=== PATIENT | female | born 1990 | race Caucasian/White ===

== ENCOUNTER 2025-01-21 02:20 | Emergency (ER) | payer MEDICAID, SELFPAY ==
[2025-01-21 02:21] VITALS: BMI 25.0
[2025-01-21 02:28] VITALS: BP 141/78; PULSE 103; RESP 19; TEMP 36.7; O2SAT 98
--- NOTE | 2025-01-21 03:30 | PC.NURSE ---
Patient currently in restroom and aware of need for urine sample.
[2025-01-21] MEDS: NAPROXEN 250 MG TABLET 500 MG PO (03:46)
[2025-01-21] MEDS: AZITHROMYCIN 250 MG TABLET 1000 MG PO (03:46)
[2025-01-21] MEDS: cefTRIAXone 1,000 MG, LIDOCAINE 1% 20 ML 2.1 ML IM (03:47)
[2025-01-21 04:04] LABS: HIV (1&2) Antibody Rapid Non-Reactive
--- NOTE | 2025-01-21 04:13 | EDNOTE_ITS ---
ED Female Urogenital RME/HPI General Chief complaint: General Adult/Misc Complain Stated complaint: STD CHECK / FEELS LIKE A DIAPER RASH Time Seen by Provider: 01/21/25 02:50 Arrival date/time: 01/21/25 02:20 34F with history of homelessness and drug use presents to ED with vaginal rash and irritation/pain after some sexual encounter several months ago. Patient denies vaginal discharge and dysuria. Limitations: no limitations Related Data Previous Rx's ?Medication ?Instructions ?Recorded hydrocodone 5 mg-acetaminophen 325 1 tab PO Q6H PRN pa in #10 tabs 05/14/22 mg tablet naproxen 500 mg tablet (Naprosyn) 500 mg PO BID pain # 10 tabs 06/13/24 ondansetron 4 mg disintegrating 4 mg PO Q6H PRN nausea and 06/13/24 tablet vomiting #20 tabs lidocaine 5 % topical ointment 1 applic topical BID LA N pain #30 01/21/25 grams naproxen 500 mg tablet 500 mg PO BID PRN pain #30 t abs 01/21/25 sinecatechins 15 % topical 1 applic topical TID #30 gr ams 01/21/25 ointment (Veregen) Allergies Allergy/AdvReac Type Severity Reaction Status Date / Time No Known Allergies Allergy Unknown Unverified 06/13/24 16:24 Review of Systems Review of Systems Systems Reviewed: All systems reviewed, normal except as documented Constitutional Constitutional: Reports system reviewed and no additional complaints, except as documented, Denies fever(s) and Denies headache(s) ENT Ears, Nose, Mouth, and Throat: Denies disequilibrium and Denies headache(s) Cardiovascular Cardiovascular: Reports system reviewed and no additional complaints, except as documented, Denies chest pain and Denies dyspnea Respiratory Respiratory: Reports system reviewed and no additional complaints, except as documented, Denies cough and Denies dyspnea Gastrointestinal Gastrointestinal: Reports system reviewed and no additional complaints, except as documented, Denies abdominal pain, Denies nausea and Denies vomiting Genitourinary Genitourinary: Reports as per HPI, Reports pelvic pain and Reports vaginal pruritus Neurologic Neurologic: Reports system reviewed and no additional complaints, except as documented, Denies confusion, Denies disequilibrium and Denies headache(s) Psychiatric Psychiatric: Denies confusion Past Medical History Past Medical History NEUROLOGIC: Positive Neurological Disorders and Migraine; Negative Seizures CARDIAC: Negative Cardiac Disorders or Congestive Heart Failure RESPIRATORY: Negative Chronic Obstructive Pulmonary Disease (COPD), Asthma or Bronchitis GASTROINTESTINAL: Negative Gastrointestinal Disorders or Colorectal Cancer GENITOURINARY: Positive Genitourinary Disorders (hx uti); Negative Renal Disease or Prostate Cancer REPRODUCTIVE: Positive Previous Pregnancies; Negative Breast Cancer, Genital Herpes, Gonorrhea, Syphilis or Testicular Cancer MUSCULOSKELETAL: Positive Musculoskeletal Disorders and Scoliosis; Negative Bone Cancer ENDOCRINE: Negative Endocrine Disorders, Diabetes Mellitus Type 1 or Diabetes Mellitus Type 2 HEMATOLOGIC: Negative Blood Disorders PSYCHO/SOCIAL: Positive Depression, Anxiety and Self-Mutilation (as a teenager); Negative Depression OTHER HISTORY: Positive Chicken Pox; Negative Autoimmune Disease, Blood Transfusions, Blood Transfusion Reaction, Anesthesia Reactions, Cancer, Breast Cancer, Cervical Cancer, Colorectal Cancer, Lung Cancer, Ovarian Cancer, Prostate Cancer or Testicular Cancer Family History FAMILY HISTORY: Positive Family Surgery (grandmother hysterectomy); Negative Family Psychiatric Problems, Family Respiratory Disorders, Family Cardiac Disorders, Family Gastrointestinal Problems, Family Cancer or Family Anesthesia Reaction Surgical History SURGICAL: Positive Abdominal Surgery (c/s x4) and Section Social History SMOKING STATUS: Former smoker SUBSTANCE USE: does not use ED Exam General Limitations: Present no limitations General appearance: Present alert and in no apparent distress Head Head exam: Present atraumatic Eye Eye exam: Present normal appearance, PERRL and EOMI ENT ENT exam: Present normal exam, normal oropharynx and mucous membranes moist Neck Neck exam: Present normal inspection, full ROM and trachea midline Chest Chest inspection: Present normal inspection and symmetric chest wall rise Respiratory Respiratory exam: Present normal lung sounds bilaterally Cardiovascular Cardiovascular exam: Present regular rate, normal rhythm and normal heart sounds Abdominal Exam Abdominal exam: Present soft and normal bowel sounds External exam: Present lesions Extremities Exam Extremities exam: Present normal inspection and full ROM Back Exam Back exam: Present normal inspection and full ROM Neurological Exam Neurological exam: Present alert, oriented X3 and CN II-XII intact Psychiatric Psychiatric exam: Present normal affect and normal mood Skin Skin exam: Present warm, dry, intact and normal color Course Quality Measures none Orders Category Date Time Status Chlamydia/GC/TV - PCR Stat Lab 01/21/25 03:34 Received HIV (1&2) Antibody Rapid Stat Lab 01/21/25 03:13 Completed MHATP/TP-PA* Stat Lab 01/21/25 03:13 Received Syphilis Stat Lab 01/21/25 03:13 Completed Azithromycin Po [Zithromax PO] Med 01/21/25 03:00 Discontinued 1,000 mg PO X1 ONE Naproxen [Naprosyn] Med 01/21/25 03:00 Discontinued 500 mg PO X1 ONE PEN G STEPHEN (Bicillin LA) [Bicillin La Inj] Med 01/21/25 05:11 Discontinued 2.4 mmu IM X1 ONE cefTRIAXone [Rocephin] 1,000 mg Med 01/21/25 03:00 Discontinued Lidocaine 1% 20 ml [Xylocaine 1% 20 ML] 2.1 ml IM X1 Vital Signs Vital signs: Vital Signs Temperature 98.1 F 01/21/25 02:28 Pulse Rate 103 H 01/21/25 02:28 Respiratory Rate 19 01/21/25 02:28 Blood Pressure 141/78 H 01/21/25 02:28 Pulse Oximetry (%) 98 01/21/25 02:28 Oxygen Delivery Method Room Air 01/21/25 02:28 O2 at 98% on RA and WNLs Urogenital - Female MDM Narrative MDM Narrative:: 34F with history of homelessness and drug use presents to ED with vaginal rash and irritation/pain after some sexual encounter several months ago. Patient denies vaginal discharge and dysuria. Physical exam with trade clerk reveals cauliflower-like growth on vulva and surrounding areas. There are some open areas, but no obvious vesicular/chancroid rash. Patient is afebrile, alert, but anxious. Likely genital warts. Will treat empirically for GC as patient requests. HIV neg. Syphillis screen was positive. Will treat empirically. Instructor Kindergarten given. Patient data External records reviewed:: [facility] previous records Clinical information provided by:: patient Social determinants that could affect healthcare access:: housing Patient has the following chronic illnesses:: homelessness and drug use How is presenting disease/condition affected by chronic disease/condition?: exacerbated by Evaluation data The following diagnostics were reviewed and interpreted by me:: lab results Lab and/or radiology exams considered but not ordered:: ordered Interpretation Summary: above Medications / Prescriptions Medications or Prescriptions considered but not ordered:: ordered Medication administrations:: Medication Administration History Discontinued Medications Azithromycin (Azithromycin 250 Mg Tablet) 1,000 mg PO X1 ONE Stop: 01/21/25 03:01 Last Admin: 01/21/25 03:46 Dose: 1,000 mg Documented By: INDY Ceftriaxone Sodium 1,000 mg/ (Lidocaine HCl 2.1 ml) 0 mg IM X1 ONE Stop: 01/21/25 03:01 Last Admin: 01/21/25 03:47 Dose: 1,000 mg Documented By: Naproxen (Naproxen 250 Mg Tablet) 500 mg PO X1 ONE Stop: 01/21/25 03:01 Last Admin: 01/21/25 03:46 Dose: 500 mg Documented By: Penicillin G Benzathine (Pen G Stephen (Bicillin La) 1.2 Mmu/2 Ml Syrg) 2.4 mmu IM X1 ONE Stop: 01/21/25 05:12 above Consultations Consultation(s) initiated? (list below): No Diagnosis Urogenital Female Differential Diagnosis: urinary tract infection, bacterial vaginosis, trichomoniasis, cervicitis, ovarian cyst, vaginitis, ruptured ovarian cyst, cyst of Bartholin's gland, cystitis, dysmenorrhea and other (genital warts, concern for STD, syphillis) Most likely diagnosis given after review of the tests above:: genital warts, concern for STD, syphillis Admission Indicated Admission indicated?: not indicated Admission Request Was there a request for admission?: No Disposition Plan Disposition Plan: Discharge Discharge Attestation Discharge Attestation: The patient and all family members were given an opportunity to ask questions and understood the discharge instructions. Discharge instructions specifically effects, indications for sooner follow up or return to the emergency department, and the expected course of current diagnosis. Patient condition: Stable Discharge Plan Plan Patient Disposition: HOME (Self Care) Disposition Comment: Stable Prescriptions/Referrals Prescriptions/Med Rec: New lidocaine 5 % ointment 1 applic topical BID PRN (Reason: pain) Qty: 30 0RF Rx Instructions: Use as needed such as prior to urination or if there is pain Veregen 15 % ointment 1 applic topical TID Qty: 30 0RF Rx Instructions: use no more than 16 weeks naproxen 500 mg tablet 500 mg PO BID PRN (Reason: pain) Qty: 30 0RF No Action hydrocodone-acetaminophen 5-325 mg tablet 1 tab PO Q6H MDD 4 PRN (Reason: pain) Qty: 10 0RF ondansetron 4 mg tablet,disintegrating 4 mg PO Q6H PRN (Reason: nausea and vomiting) Qty: 20 0RF naproxen [Naprosyn] 500 mg tablet 500 mg PO BID Qty: 10 0RF Referrals: Temporary Provider,ED [Physician] - In 1 week Problem List Clinical Impression: Genital warts, Acquired syphilis, Concern about STD in female without diagnosis Patient/Caregiver Discharge Instructions Education Materials: Syphilis, Genital Warts (Condyloma) Additional Instructions: Please follow-up with PCP within 24-48 hours and return immediately if symptoms worsen. Can call medical records to get the rest of your test results: Print Language: Chinese Stand Alone Forms: Patient Portal Info Letter PA/SHUFFLE BOARD OPERATOR Supervising Physician PA/SHUFFLE BOARD OPERATOR Supervising Physician: Dr. Pierson
[2025-01-21 04:23] LABS: Syphilis Reactive (Nonreactive)
[2025-01-21 04:24] LABS: MHATP/TP-PA* See Sep Rpt
[2025-01-21] MEDS: PEN G BENZ (Bicillin LA) 1.2 MMU/2 ML SYRG 2.4 MMU IM (05:20)
[2025-01-21 05:40] VITALS: BP 135/76; PULSE 99; RESP 18; TEMP 37; O2SAT 99
[2025-01-21 10:32] LABS: Chlamydia trachomatis PCR Negative (Not Detect); Neisseria Gonorrhoeae DNA PCR Negative (Not Detect); Trichomonas Positive (Negative)
== END 2025-01-21 05:42 | disposition home or self-care (01) ==
PROVIDERS: Physician Assistant; Emergency Provider Emergency Medicine; PCP Family Medicine
DX: A63.0 Anogenital (venereal) warts (principal); A53.9 Syphilis, unspecified; Z59.00 Homelessness unspecified
CPT/HCPCS: 36415; 86703; 86780; 87491; 87591; 87661; 96372; 99283; J0561; J0696; J3490; A9270

== ENCOUNTER 2025-05-07 00:01 | Emergency (ER) | payer MEDICAID, SELFPAY ==
[2025-05-07 00:02] VITALS: BMI 25.0
[2025-05-07 00:39] VITALS: BP 113/74; PULSE 80; RESP 18; TEMP 36.7; O2SAT 99
--- NOTE | 2025-05-07 01:17 | EDNOTE_ITS ---
<Statement entered by Brenda Victor MD - 05/07/25 02:09> As co-signing physician, I was present and available for consult prn. I concur with the plan and care as documented by the midlevel provider. ED Skin Abcess FB-RME/HPI General Chief complaint: Skin/Abscess/Foreign Body Stated complaint: PAINFUL LUMP TO R AMANUEL OF FACE Time Seen by Provider: 05/07/25 01:05 Arrival date/time: 05/07/25 00:01 34F with history of drug use presents to ED with painful insect/spider bite on R side of face. Limitations: no limitations Related Data Previous Rx's ?Medication ?Instructions ?Recorded hydrocodone 5 mg-acetaminophen 325 1 tab PO Q6H PRN pa in #10 tabs 05/14/22 mg tablet naproxen 500 mg tablet (Naprosyn) 500 mg PO BID pain # 10 tabs 06/13/24 ondansetron 4 mg disintegrating 4 mg PO Q6H PRN nausea and 06/13/24 tablet vomiting #20 tabs lidocaine 5 % topical ointment 1 applic topical BID AK N pain #30 01/21/25 grams naproxen 500 mg tablet 500 mg PO BID PRN pain #30 t abs 01/21/25 sinecatechins 15 % topical 1 applic topical TID #30 gr ams 01/21/25 ointment (Veregen) mupirocin 2 % topical ointment 1 applic topical BID #1 5 grams 05/07/25 Allergies Allergy/AdvReac Type Severity Reaction Status Date / Time No Known Allergies Allergy Unknown Unverified 05/07/25 00:06 Review of Systems Review of Systems Systems Reviewed: All systems reviewed, normal except as documented Constitutional Constitutional: Reports system reviewed and no additional complaints, except as documented, Denies fever(s) and Denies headache(s) ENT Ears, Nose, Mouth, and Throat: Denies disequilibrium and Denies headache(s) Cardiovascular Cardiovascular: Reports system reviewed and no additional complaints, except as documented, Denies chest pain and Denies dyspnea Respiratory Respiratory: Reports system reviewed and no additional complaints, except as documented, Denies cough and Denies dyspnea Gastrointestinal Gastrointestinal: Reports system reviewed and no additional complaints, except as documented, Denies abdominal pain, Denies nausea and Denies vomiting Integumentary/Breasts Skin/Breast: Reports as per HPI and Reports skin pain Neurologic Neurologic: Reports system reviewed and no additional complaints, except as documented, Denies confusion, Denies disequilibrium and Denies headache(s) Psychiatric Psychiatric: Denies confusion Past Medical History Past Medical History NEUROLOGIC: Positive Neurological Disorders and Migraine; Negative Seizures CARDIAC: Negative Cardiac Disorders or Congestive Heart Failure RESPIRATORY: Negative Chronic Obstructive Pulmonary Disease (COPD), Asthma or Bronchitis GASTROINTESTINAL: Negative Gastrointestinal Disorders or Colorectal Cancer GENITOURINARY: Positive Genitourinary Disorders (hx uti); Negative Renal Disease or Prostate Cancer REPRODUCTIVE: Positive Previous Pregnancies; Negative Breast Cancer, Genital Herpes, Gonorrhea, Syphilis or Testicular Cancer MUSCULOSKELETAL: Positive Musculoskeletal Disorders and Scoliosis; Negative Bone Cancer ENDOCRINE: Negative Endocrine Disorders, Diabetes Mellitus Type 1 or Diabetes Mellitus Type 2 HEMATOLOGIC: Negative Blood Disorders PSYCHO/SOCIAL: Positive Depression, Anxiety and Self-Mutilation (as a teenager); Negative Depression OTHER HISTORY: Positive Chicken Pox; Negative Autoimmune Disease, Blood Transfusions, Blood Transfusion Reaction, Anesthesia Reactions, Cancer, Breast Cancer, Cervical Cancer, Colorectal Cancer, Lung Cancer, Ovarian Cancer, Prostate Cancer or Testicular Cancer Family History FAMILY HISTORY: Positive Family Surgery (grandmother hysterectomy); Negative Family Psychiatric Problems, Family Respiratory Disorders, Family Cardiac Disorders, Family Gastrointestinal Problems, Family Cancer or Family Anesthesia Reaction Surgical History SURGICAL: Positive Abdominal Surgery (c/s x4) and Section Social History SMOKING STATUS: Current every day smoker SUBSTANCE USE: does not use ED Exam General Limitations: Present no limitations General appearance: Present alert and in no apparent distress Expanded Head Exam Head exam physical: Present other (R face bite jaymie) Eye Eye exam: Present normal appearance, PERRL and EOMI ENT ENT exam: Present normal exam, normal oropharynx and mucous membranes moist Neck Neck exam: Present normal inspection, full ROM and trachea midline Chest Chest inspection: Present normal inspection and symmetric chest wall rise Respiratory Respiratory exam: Present normal lung sounds bilaterally Cardiovascular Cardiovascular exam: Present regular rate, normal rhythm and normal heart sounds Abdominal Exam Abdominal exam: Present soft and normal bowel sounds Extremities Exam Extremities exam: Present normal inspection and full ROM Back Exam Back exam: Present normal inspection and full ROM Neurological Exam Neurological exam: Present alert, oriented X3 and CN II-XII intact Psychiatric Psychiatric exam: Present normal affect and normal mood Skin Skin exam: Present warm, dry, intact and normal color Course Quality Measures none Vital Signs Vital signs: Vital Signs Temperature 98.0 F 07/24/25 00:39 Pulse Rate 80 05/07/25 00:39 Respiratory Rate 18 05/07/25 00:39 Blood Pressure 113/74 05/07/25 00:39 Pulse Oximetry (%) 99 05/07/25 00:39 Oxygen Delivery Method Room Air 05/07/25 00:39 O2 at 99% on RA and WNLs Skin / Abscess / Foreign Body MDM Narrative MDM Narrative:: 34F with history of drug use presents to ED with painful insect/spider bite on R side of face. Physical exam reveals R insect bite on face with minimal necrosis and redness around it. Patient is afebrile, calm, and alert. Meds and adoption counselor given. Patient data External records reviewed:: [facility] previous records Clinical information provided by:: patient Social determinants that could affect healthcare access:: substance use Patient has the following chronic illnesses:: drug use How is presenting disease/condition affected by chronic disease/condition?: exacerbated by Evaluation data The following diagnostics were reviewed and interpreted by me:: other (specify) (none) Lab and/or radiology exams considered but not ordered:: not ordered Interpretation Summary: n/a Medications / Prescriptions Medications or Prescriptions considered but not ordered:: not ordered Medication administrations:: n/a Consultations Consultation(s) initiated? (list below): No Diagnosis Skin/Abscess Differential Diagnosis: abscess of skin or subcutaneous tissue, viral exanthem, dermatophytosis, urticaria, herpes zoster, allergic reaction to drug, cellulitis, eczema, insect bites, impetigo, contact dermatitis and other (spider bite) Most likely diagnosis given after review of the tests above:: spider bite Admission Indicated Admission indicated?: not indicated Admission Request Was there a request for admission?: No Disposition Plan Disposition Plan: Discharge Discharge Attestation Discharge Attestation: The patient and all family members were given an opportunity to ask questions and understood the discharge instructions. Discharge instructions specifically effects, indications for sooner follow up or return to the emergency department, and the expected course of current diagnosis. Patient condition: Stable Discharge Plan Plan Patient Disposition: HOME (Self Care) Discharge Disposition comment: Stable Prescriptions/Referrals Prescriptions/Med Rec: New mupirocin 2 % ointment 1 applic topical BID Qty: 15 0RF No Action hydrocodone-acetaminophen 5-325 mg tablet 1 tab PO Q6H MDD 4 PRN (Reason: pain) Qty: 10 0RF ondansetron 4 mg tablet,disintegrating 4 mg PO Q6H PRN (Reason: nausea and vomiting) Qty: 20 0RF naproxen [Naprosyn] 500 mg tablet 500 mg PO BID Qty: 10 0RF lidocaine 5 % ointment 1 applic topical BID PRN (Reason: pain) Qty: 30 0RF Rx Instructions: Use as needed such as prior to urination or if there is pain Veregen 15 % ointment 1 applic topical TID Qty: 30 0RF Rx Instructions: use no more than 16 weeks naproxen 500 mg tablet 500 mg PO BID PRN (Reason: pain) Qty: 30 0RF Problem List Clinical Impression: Spider bite Patient/Caregiver Discharge Instructions Education Materials: Insect Bites and Stings Additional Instructions: Please follow-up with PCP within 24-48 hours and return immediately if symptoms worsen. Print Language: Wolof Stand Alone Forms: Patient Portal Info Letter BLAKE/BENEDICTO Supervising Physician BLAKE/BENEDICTO Supervising Physician: Dr. Victor
== END 2025-05-07 01:10 | disposition home or self-care (01) ==
LOC: SERX 02:43
PROVIDERS: Emergency Provider Emergency Medicine; PCP Family Medicine
DX: T63.301A Toxic effect of unspecified spider venom, accidental (unintentional), initial encounter (principal); R22.0 Localized swelling, mass and lump, head
CPT/HCPCS: 99282